=== PATIENT | male | born 1945 | race Caucasian/White ===

== ENCOUNTER 2016-12-29 13:50 | Emergency (ER) | payer MEDICARE, BC ==
--- OUTSIDE RECORDS SUMMARY | 2016-12-29 14:19 | XMS REPORT | Continuity of Care Document ---
:1945 Author Organization [facility] ([facility]) [place] [address] Phone [phone] Care Team Providers Name Role Phone Sharad Coello Primary Care Provider [phone] Source Comments This disclosure is being made pursuant to the Care Everywhere program, applicable federal and state laws, and may not contain all informaitonavailable regarding this patient.[facility] ([facility]) Active Allergies and Adverse Reactions Allergen Noted Date Severity Reactions Comments Cyclobenzaprine 11/22/2015 Unknown Tetracycline 10/30/2015 Unknown Current Medications Prescription Sig. Disp. Refills Start Date End Date Status albuterol 2.5 mg/3 mL 08/30/2015 Active inhalation solution ALPRAZolam 0.5 mg 10/08/2015 Active tablet amLODIPine 5 mg Take 5 mg by mouth 08/06/2015 Active tablet daily. furosemide 40 mg Take 40 mg by mouth 2 09/17/2015 Active tablet times daily. LANTUS 100 unit/mL 65 Units 2 times daily. 09/08/2015 Active injection vial TOPROL XL succinate 100 mg daily Take one 10/16/2015 Active 100 mg XL tablet and a half tablets. KLOR-CON 10 mEq XR Take 10 mEq by mouth 2 08/26/2015 Active tablet times daily. insulin lispro Inject 10 Units Active (HumaLOG) 100 unit/mL subcutaneously 3 times injection vial daily before meals. acarbose 25 mg tablet Take 25 mg by mouth 2 Active times daily. tamsulosin 0.4 mg Take 0.4 mg by mouth Active capsule daily. glimepiride 4 mg Take 4 mg by mouth 2 Active tablet times daily with meals. metFORMIN 500 mg Take 500 mg by mouth 2 Active tablet times daily with meals. JANTOVEN 5 mg tablet Take 5 mg by mouth 11/14/2015 Active daily. budesonide-formoterol Use 2 Puffs by Active (SYMBICORT) 160-4.5 inhalation 2 times mcg/Actuation inhaler daily. lovaSTATIN 20 mg Take 20 mg by mouth Active tablet every evening. melatonin 5 mg tablet Take 5 mg by mouth at Active bedtime. ferrous sulfate 325 Take 325 mg by mouth Active mg (65 mg iron) EC daily. tablet fluticasone 50 Use 2 Sprays into both Active mcg/Actuation nasal nostrils daily. spray Active Problems Problem Noted Date Morbid obesity with BMI of 50.0-59.9, adult Atrial fibrillation Overview: CARDIOVASCULAR PROCEDURES STRESS MPI: Normal perfusion. LVEF 68% 11/2010 CARDIOVASCULAR PROCEDURES STRESS MPI: Normal perfusion. LVEF 68% 11/2010 ECHO Echo: Normal study. EF 65%. No significant valve disease 11/01/2015 Diabetes mellitus Hyperlipidemia Hypertension Social History Tobacco Use Types Packs/Day Years Used Date Never Smoker Alcohol Use Drinks/Week oz/Week Comments No Last Filed Vital Signs Vital Sign Reading Time Taken Blood Pressure 136/80 05/27/2016 12:22 PM CDT Pulse 72 05/27/2016 12:22 PM CDT Temperature - - Respiratory Rate - - Height 1.676 m (5' 6") 05/27/2016 12:22 PM CDT Weight 143.79 kg (317 lb) 05/27/2016 12:22 PM CDT Body Mass Index 51.19 05/27/2016 12:22 PM CDT Oxygen Saturation - - Plan of Care Health Maintenance Due Date Last Done Comments HCV Screening 1945 Hepatitis B Vaccine (1 of 3 - Primary Series) 1945 Tdap Vaccine 1956 DIABETIC: Cholesterol 1963 Diabetic: Hdl 1963 DIABETIC: Hemoglobin A1C 1964 Diabetic: Ldl 1964 DIABETIC: Microalbumin 1964 DIABETIC: Triglycerides 1963 Td Vaccine 1963 Colonoscopy 05/16/1996 Prostate Cancer Screening 1996 Zoster Vaccine 2006 Pneumococcal Vaccine (1 of 2 - PCV13) 2011 DIABETIC: Foot Exam 10/30/2015 DIABETIC: Retinal Eye Exam 10/30/2015 Influenza Vaccine: Seasonal Completed Results from Last 3 Months Not on file
--- OUTSIDE RECORDS SUMMARY | 2016-12-29 14:19 | XMS REPORT | Summary of Care ---
:1945 Author Organization [facility] Address [address] [place] [address] Care Team Providers Name Role Phone Sharad Coello Primary Care Physician Encounter Date(s): 09/26/16 - 09/26/16 [facility], [address] [place], [place] [address] Discharge Diagnosis: BPH with obstruction/lower urinary tract symptoms Discharge Diagnosis: History of kidney stones Discharge Disposition: 01 Discharged to Home or Self Care Attending Physician: Justni Prescott MD Referring Physician: Justin Prescott MD Vital Signs Most recent to oldest [Reference Range]: 1 Temperature Temporal Artery [36.0-38.0 DegC] 36.0 DegC (09/26/16 11:08 AM) Blood Pressure [90-130/60-90 mmHg] 158/82mmHg *HI* (09/26/16 11:08 AM) Mean Arterial Pressure, Cuff 107 mmHg (09/26/16 11:08 AM) Most recent to oldest [Reference Range]: 1 Weight Dosing 141.6 kg (09/26/16 11:08 AM) Weight Measured 141.6 kg (09/26/16 11:08 AM) Problem List Condition Effective Dates Status Health Status Informant Allergic rhinitis(Confirmed) Active Anxiety(Confirmed) Active BPH(Confirmed) Active Diabetes mellitus(Confirmed) Active Edema(Confirmed) Active GERD - Gastro-esophageal reflux Active disease(Confirmed) Gout(Confirmed) Active Hyperlipidemia(Confirmed) Active Hypertension(Confirmed) Active Iron deficiency anemia NOS(Confirmed) Active Kidney stone(Confirmed) Active Obesity(Confirmed) Active Osteoarthritis(Confirmed) Active Sleep apnea(Confirmed) Active Thrombocytopenia(Confirmed) Active Allergies, Adverse Reactions, Alerts Substance Reaction Severity Status cyclobenzaprine Unknown Severe Active Indocin Acute mental status changes Severe Active tetracyclines Swelling Severe Active Medications acarbose 25 mg oral tablet 1 tab(s), Oral, TID, 0 Refill(s) Start Date: 01/13/14 Status: Orderedalbuterol 2.5 mg/3 mL (0.083%) inhalation solution mL, Inhale, q6hr interval, PRN shortness of breath or wheezing, 0 Refill(s) Start Date: 01/13/14 Status: Orderedalbuterol HFA 1-2 puff, Inhale, PRN shortness of breath or wheezing, 0 Refill(s) Start Date: 01/13/14 Status: OrderedALPRAZolam 0.5 mg oral tablet 1 tab(s), Oral, HS, PRN for anxiety, takes as sleep aid, 0 Refill(s) Special Instructions: takes as sleep aid Start Date: 01/13/14 Status: OrderedamLODIPine 5 mg oral tablet 1 tab(s), Oral, Daily, # 30 tab(s), 0 Refill(s), Start Date: 01/10/16 11:50:00 CDT Start Date: 01/10/16 Status: OrderedamLODIPine-atorvastatin 5 mg-20 mg oral tablet tab(s), Oral, Daily, 0 Refill(s) Start Date: 01/13/14 Stop Date: 01/17/14 Status: Discontinuedaspirin 81 mg oral tablet tab(s), Oral, Daily, 0 Refill(s) Start Date: 01/13/14 Status: OrderedBactrim tab(s), Oral, BID, 0 Refill(s) Start Date: 01/17/14 Stop Date: 04/27/14 Status: Completedcephalexin 500 mg oral tablet tab(s), Oral, BID, 0 Refill(s), Start Date: 07/13/15 11:31:00 ELEMENTARY READING [employer]OR Start Date: 07/13/15 Stop Date: 01/10/16 Status: CompletedCipro 500 mg oral tablet 1 tab(s), Oral, q12hr, # 6 tab(s), 0 Refill(s) Start Date: 01/18/14 Stop Date: 04/27/14 Status: CompletedDilaudid 2 mg oral tablet 2 tab(s), Oral, q4hr, PRN for pain, # 24 tab(s), 0 Refill(s) Start Date: 01/18/14 Stop Date: 01/10/16 Status: CompletedDULoxetine 30 mg oral delayed release capsule 1 cap(s), Oral, Daily, do not crush or chew, # 30 cap(s), 0 Refill(s), Start Date: 09/26/16 11:10:00 ELEMENTARY READING TUTOR Special Instructions: do not crush or chew Start Date: 09/26/16 Status: Orderedferrous sulfate 325 mg (65 mg elemental iron) oral tablet 1 tab(s), Oral, Daily, 0 Refill(s), Start Date: 01/10/16 11:48:00 CDT Start Date: 01/10/16 Status: OrderedFlonase 50 mcg/inh nasal spray spray(s), Nasal, Daily, 0 Refill(s) Start Date: 01/13/14 Status: Orderedfurosemide 40 mg oral tablet 1 tab(s), Oral, BID, 0 Refill(s) Start Date: 01/13/14 Status: Orderedglimepiride 4 mg oral tablet 1 tab(s), Oral, BID, 0 Refill(s) Start Date: 01/13/14 Status: OrderedHumuLIN N Subcutaneous, BID, 0 Refill(s), Start Date: 01/10/16 11:49:00 CDT Start Date: 01/10/16 Status: OrderedHYDROcodone-acetaminophen 5 mg-325 mg oral tablet tab(s), Oral, q6hr interval, 0 Refill(s) Start Date: 01/13/14 Stop Date: 01/18/14 Status: Discontinuedibuprofen 800 mg oral tablet tab(s), Oral, TID, PRN for pain, 0 Refill(s) Start Date: 01/13/14 Stop Date: 01/10/16 Status: CompletedInsulin Syringes 1/4" 31G 0 Refill(s), Supply Start Date: 01/13/14 Status: OrderedKlor-Con 10 mEq, Oral, BID, 0 Refill(s) Start Date: 01/13/14 Status: OrderedLantus 60 units, Subcutaneous, BIDAC, 0 Refill(s) Start Date: 01/17/14 Status: OrderedLotrisone 1%-0.05% topical cream rob, Topical, BID, 0 Refill(s) Start Date: 01/13/14 Status: Orderedlovastatin 20 mg oral tablet 1 tab(s), Oral, HS, 0 Refill(s) Start Date: 01/13/14 Status: OrderedmetFORMIN 500 mg oral tablet, extended release 2 tab(s), Oral, BID, 0 Refill(s) Start Date: 01/13/14 Status: Orderedmultivitamin Daily, 0 Refill(s) Start Date: 01/13/14 Status: OrderedNexIUM 40 mg oral delayed release capsule cap(s), Oral, Daily, 0 Refill(s) Start Date: 01/13/14 Stop Date: 01/10/16 Status: CompletedOne Touch Ultra 2 Test Strips 0 Refill(s), Supply Start Date: 01/13/14 Status: Orderedoxybutynin 5 mg oral tablet 1 tab(s), Oral, TID, May cause urinary retention so be careful taking. May also need laxative for constipation., # 10 tab(s), 0 Refill(s) Special Instructions: May cause urinary retention so be careful taking. May also need laxative for constipation. Start Date: 01/18/14 Stop Date: 11/10/14 Status: CompletedSymbicort 160 mcg-4.5 mcg/inh inhalation aerosol puff(s), Inhale, BID, 0 Refill(s) Start Date: 01/13/14 Status: Orderedtamsulosin 0.4 mg oral capsule cap(s), Oral, Daily, 0 Refill(s) Start Date: 01/13/14 Status: OrderedToprol-XL 100 mg oral tablet, extended release 1 tab(s), Oral, Daily, # 30 tab(s), 0 Refill(s), Start Date: 01/10/16 11:51:00 CDT Start Date: 01/10/16 Status: OrderedVoltaren Topical 1% topical gel gm=, Topical, QID, 0 Refill(s) Start Date: 01/13/14 Status: Orderedwarfarin 5 mg oral tablet 1 tab(s), Oral, Daily, 0 Refill(s), Start Date: 01/10/16 11:50:00 CDT Start Date: 01/10/16 Status: OrderedZofran ODT 1 tab, Oral, PRN nausea, unsure of dose, 0 Refill(s) Special Instructions: unsure of dose Start Date: 01/13/14 Status: OrderedZyrTEC 10 mg oral tablet tab(s), Oral, Daily, 0 Refill(s) Start Date: 01/13/14 Stop Date: 01/10/16 Status: Completed Results No data available for this section Immunizations No data available for this section Procedures Procedure Date Related Diagnosis Body Site Cystoureteroscopy With Lithotripsy (Right)1 01/18/14 Knee replacement right 2009 History of hip surgery 1992 Surgical procedure2 1976 Cubital tunnel release3 Nasal polypectomy Surgery4 Surgical procedure5 1auto-populated from documented surgical [id number] tirgger finger [id number] Social History No data available for this section Assessment and Plan No data available for this section
[2016-12-29 14:47] LABS: Hematocrit 37.7 % (42.0-52.0); Hemoglobin 12.2 gm/dL (13.5-18.0); Mean Corpuscular Hemoglobin 24.3 pg (27-31); Mean Corpuscular Hgb Conc 32.4 g/dl (32-36); Mean Platelet Volume 9.6 fl (6.0-9.5); Neutrophil # 6.6 K/mm3 (1.3-6.0); Neutrophil % 67.1 % (42-75.0); Platelet Count 204 K/mm3 (150-450); Red Blood Count 5.03 M/mm3 (4.7-6.0); Red Cell Distribution Width 14.9 % (11.5-14.0); White Blood Count 9.8 K/mm3 (4.0-10.5)
[2016-12-29 15:00] LABS: Albumin * 3.4 gm/dl (3.4-5.0); Anion Gap 13.2 mmol/L (6.8-13.8); BUN/Creatinine Ratio 9.3 (9.0-21.6); Bilirubin, Total 0.5 mg/dL (0.0-1.1); Ca. Corrected For Albumin 9.3 mg/dL (8.4-10.2); Calcium * 9.1 mg/dL (7.9-10.9); Carbon Dioxide 28.7 mmol/L (24-32.6); Potassium 3.9 mmol/L (3.4-4.6); Total Protein 7.3 gm/dL (6.2-8.2)
[2016-12-29 15:13] LABS: Prothrombin Time (Patient) 77.6 Seconds (9.4-11.4)
[2016-12-29 15:18] LABS: INR 7.46 INR (0.90-1.10)
--- NOTE | 2016-12-29 15:48 | ERNOTE ---
Medical Problem HPI - Narrative Date of Service: 12/29/16 - General Chief Complaint: General Assessment Time Seen by Provider: 12/29/16 14:05 Source: patient Exam Limitations: no limitations - Immun/Allergies/Home Medications Immunizations: IMMUNIZATION HX Immunizations Up to Date No History of Influenza Vaccine No Hx Pneumococcal Vaccination No Allergies/Adverse Reactions: Allergies cyclobenzaprine Allergy (Verified 12/29/16 13:57) indomethacin [From Indocin] Allergy (Verified 12/29/16 13:57) indomethacin sodium [From Indocin] Allergy (Verified 12/29/16 13:57) tetracycline [Tetracycline] Allergy (Verified 12/29/16 13:57) Home Medications: HOME MEDICATIONS Lovastatin [Mevacor] 20 mg PO DAILY 02/25/13 [Last Taken Unknown] Potassium Chloride [Klor-Con 10] 20 meq PO DAILY 02/25/13 [Last Taken Unknown] Acarbose [Precose] 25 mg PO BID 01/01/16 [Last Taken Unknown] Albuterol Sulfate 2.5 mg IH PRN PRN 01/01/16 [Last Taken Unknown] Budesonide/Formoterol Fumarate [Symbicort 160-4.5 Mcg Inhaler] 2 puff IH BID 06/08 [Last Taken Unknown] Fluticasone Propionate [Flovent Diskus] 50 mcg IH TID 01/01/16 [Last Taken Unknown] Furosemide [Lasix] 40 mg PO BID 01/01/16 [Last Taken Unknown] Glimepiride 4 mg PO BID 01/01/16 [Last Taken Unknown] Insulin Glargine,Hum.rec.anlog [Lantus] 65 units SC BID 01/01/16 [Last Taken Unknown] Insulin Regular, Human [Humulin R] 10 unit SC DAILY@1200 01/01/16 [Last Taken Unknown] Loratadine [Claritin] 10 mg PO DAILY 01/01/16 [Last Taken Unknown] Tamsulosin HCl [Flomax] 0.4 mg PO DAILY 01/01/16 [Last Taken Unknown] Warfarin Sodium [Coumadin] 5 mg PO DAILY 01/01/16 [Last Taken Unknown] ALPRAZolam [Xanax] 0.5 mg PO HS PRN 03/26/16 [Last Taken Unknown] Diclofenac Sodium [Voltaren] 1 appl TP QID 03/26/16 [Last Taken Unknown] Metoprolol Succinate [Toprol Xl] 100 mg PO DAILY 03/26/16 [Last Taken Unknown] metFORMIN HCL [Metformin HCl ER] 500 mg PO DAILY 03/26/16 [Last Taken Unknown] Amlodipine Besylate 5 mg PO DAILY 12/29/16 [Last Taken Unknown] - History of Present History Narrative: 71-year-old male presents to the emergency room after he rolled over his lawnmower at home. Patient states steroid melted his chest and has right ankle is sore lawnmower clotted at some point. Patient denies any hitting his head he has no other symptoms at this time.Patient is on Coumadin. Date (Duration): 12/29/16 Timing: constant Severity: mild Modifying Factors - (Improves): Present: immobilization Modifying Factors - (Worsens): Present: movement Review of Systems - Review of Systems Constitutional: Present: no symptoms reported EYE: Present: no symptoms reported ENT: Present: no symptoms reported Respiratory: Present: no symptoms reported Cardiology: Present: no symptoms reported Gastrointestinal/Abdominal: Present: no symptoms reported Genitourinary: Present: no symptoms reported Musculoskeletal: Present: See HPI, joint pain Skin: Present: See HPI Neurological: Present: no symptoms reported Endocrine: Present: no symptoms reported Hematologic/Lymphatic: Present: See HPI Psych: Present: no symptoms reported - Patient's Past Medical History Patient History - Medical: Anxiety, Arthritis, Diabetes Type 2 Insulin Dependent , GERD, Obesity, Other Patient History - Cardiac/Respiratory: Bronchitis, Hypertension, Hyperlipidemia , Sleep Apnea Patient History - Cancer: No Hx of Cancer Patient History - Surgical Procedures: Back Surgery, Total Knee Replacement, Other Patient History - Other: None - Social History Living Situations: home Abuse History: No History of abuse Psych History: Hx of Anxiety Alcohol Use: none Drug Use: none - Immunizations Immunizations Up to Date: No Hx Pneumococcal Vaccination: No History of Influenza Vaccine: No Physical Exam - Physical Exam Narrative: sternum is rounding machine tender to touch, no bruising or deformity seen. Several small skin teard to right elbow and a few scatters to left and right legs. Right ankle is tender to touch and swollen. Patient has +1-2 edema to BLE which is normal for him. General Appearance: Present: wd/wn, alert, no apparent distress Eye Exam: Normal inspection: bilateral Ears, Nose, Throat: Present: normal ENT inspection Neck: Present: normal inspection, nontender, full range of motion Respiratory: Present: no respiratory distress, normal breath sounds, no accessory muscle use, lungs clear Cardiovascular/Chest: Present: regular rate, rhythm, no murmur, normal peripheral pulses Peripheral Pulses: N=norm/S=strong/W=weak/B=bound/A=absent: Radial (R): Normal, Radial (L): Normal, Dorsalis-pedis (R): Normal, Dorsalis-pedis (L): Normal Gastrointestinal/Abdominal: Present: normal bowel sounds, nondistended, soft. Absent: tenderness, distended Back Exam: Present: normal inspection, normal range of motion, no CVA tenderness Extremity Exam: Present: normal except - Neurological Exam: Present: alert, oriented, normal mood/affect, no motor/ sensory deficits, quality assurance/r&d lab technician II-XII nml as tested, normal cerebellar test. Absent: facial droop Skin Exam: Present: normal color, warm/dry Lymphatic Exam: Present: no adenopathy ED Progress - Results and Orders Patient's Lab Results:: I have reviewed the patient's lab results. Results and Orders: elevated inr, Patient is to hold INR, recheck on Thursday at Coumadin clinic. - Vital Signs Patient's Vital Signs:: I have reviewed the patient's vital signs. Vital Signs: Vital Signs 12/29/16 12/29/16 12/29/16 13:52 14:14 15:04 Temperature 36.8 C 36.6 C Pulse Rate 77 78 72 Respiratory 14 14 14 Rate Blood Pressure 164/95 153/78 163/70 O2 Sat by Pulse 98 96 96 Oximetry - X-Ray X-Ray #1 X-Ray: ankle Interpretation: Reviewed by me X-ray Comments: Ankle Minimum 3 Views RT * No definable fracture lucency or cortical discontinuity. Patient has small well-corticated ossific fragments distal to both the medial and lateral malleoli. Joint spaces are in gross normal alignment without subluxation or dislocation. Diffuse soft tissue swelling noted. Soft tissue calcifications noted along the medial aspect of the right lower leg/ankle. IMPRESSION: 1. No definite signs of acute fracture. Probable old avulsion injuries of the medial and lateral malleoli, but clinical correlation is advised. 2. Diffuse soft tissue swelling. 3. Nonspecific soft tissue calcifications of the right lower extremity. Correlate clinically for any road debris/laceration. Electronically signed by Pat Rowan M.D.. - CT/Ultrasound CT/Ultrasound Narrative: Technique: Multiple axial images of the head obtained without contrast enhancement. Comparison: None. Findings: Exam shows symmetric appearing ventricular system and cortical sulci. There is no positive mass effect or midline shift. There is no evidence for intracranial hemorrhage. Visualized paranasal sinuses and mastoid air cells appear adequately aerated. There are no skull fractures. IMPRESSION: NO ACUTE INTRACRANIAL PATHOLOGY IDENTIFIED. Electronically signed by Markos Girard M.D.. History: Trauma. Pain post injury. Rolled lawnmower today. Chest pain. Headache. Technique: Multislice helical acquisition of the cervical spine performed without contrast enhancement. Axial, coronal, and parasagittal reconstruction images performed and reviewed. Comparison: 10/08/2015 Findings: There is soft tissue attenuation secondary to patient body habitus. Alignment appears within normal limits. There is osteophyte formation at all levels. No fractures identified. No prevertebral soft tissue swelling identified. IMPRESSION: MILD TO MODERATE MULTILEVEL CERVICAL SPONDYLOSIS. NO ACUTE FRACTURE OR DISLOCATION IDENTIFIED. Electronically signed by Markos Girard M.D.. History: Trauma. Pain post injury. Rolled lawnmower today. Chest pain. Headache. Technique: 1.5 mm and 3 mm axial imaging from the level above the thoracic inlet through the lung bases to the adrenal glands performed with IV contrast enhancement. Comparison: 09/15/2011 Findings: There are atherosclerotic calcifications including coronary artery calcifications. There is no mediastinal or hilar traumatic injuries. There is no pericardial effusion. There is no significant pleural effusions. There is no pneumothorax. There is no pulmonary contusion. There is some dependent atelectasis. There are degenerative changes and a scoliotic thoracic spine. IMPRESSION: NO ACUTE CARDIOPULMONARY DISEASE IDENTIFIED. ATHEROSCLEROTIC DISEASE INCLUDING CORONARY ARTERY CALCIFICATIONS. Electronically signed by Markos Girard M.D.. Findings: There are atherosclerotic calcifications. There is mild diffuse fatty infiltration of the liver. Liver is enlarged measuring 20 cm. Spleen appears within normal limits. Adrenal glands are within normal limits. There is some fatty infiltration and atrophy of the pancreas. Kidneys appear within normal limits. There are degenerative changes of the lumbar spine. There is no significant free fluid or ascites. There is no hemoperitoneum. Urinary bladder is unremarkable. There are mild degenerative changes to both sacroiliac joints. There is diverticulosis of the left hemicolon. Appendix is unremarkable. IMPRESSION: NO ACUTE POSTTRAUMATIC INTRA-ABDOMINAL OR PELVIC ORGAN INJURY IDENTIFIED. NONSPECIFIC HEPATOMEGALY WITH FATTY INFILTRATION OF THE LIVER. OTHER INCIDENTAL FINDINGS SUCH ATHEROSCLEROTIC DISEASE AND DEGENERATIVE CHANGES. Electronically signed by Markos Girard M.D.. - Progress/Reassessment Chief Complaint: General Assessment Progress:: Improved Plan - Plan Plan: He was given discharge instructions by Ann who was running the Coumadin clinic. She instructed him to not take his medication for Coumadin for 2 days and return to the hospital on Thursday for a follow-up INR and kidney function tests related to CT scan contrast in him being on metformin. Patient agrees to this ER attending agrees to this and this provider agrees to this plan of action. Departure - Departure Clinical Impression: Contusion of right ankle, initial encounter Qualifiers: Encounter type: initial encounter Qualified Code(s): S90.01XA - Contusion of right ankle, initial encounter Disposition: Home Follow Up Needed Condition: Stable Instructions: RICE for Routine Care of Injuries, [id number], Ankle Pain Additional Instructions: Continue previous home medications as directed. Follow-up with family clinic on Thursday for a recheck of her INR and Kidney function check r/t your metformin. He may follow up with her primary care provider to regular related to ankle pain if needed. Return to the emergency room if any new symptoms develop or he becomes short of breath or have chest pain. Referrals: Sharad Coello MD [Primary Care Provider] -
[2016-12-29 16:10] VITALS: BP 129/53
[2016-12-29 16:49] LABS: Urine Appearance Clear; Urine Bacteria 1+; Urine Bilirubin Negative (NEGATIVE); Urine Blood Negative /ul (NEGATIVE); Urine Color Yellow; Urine Ketone Negative (NEGATIVE); Urine Nitrite Negative (NEGATIVE); Urine Protein Negative (NEGATIVE); Urine RBC None Seen /hpf (0-5); Urine Urobilinogen Normal (NORMAL); Urine WBC None Seen /hpf (0-5); Urine pH 7.5 pH (5.0-7.0)
== END 2016-12-29 16:19 | disposition home or self-care (01) ==
LOC: ER 13:50
DX: S90.01XA Contusion of right ankle, initial encounter (principal); X58.XXXA Exposure to other specified factors, initial encounter; Y93.H9 Activity, other involving exterior property and land maintenance, building and construction; Y92.007 Garden or yard of unspecified non-institutional (private) residence as the place of occurrence of the external cause; F41.9 Anxiety disorder, unspecified; M19.90 Unspecified osteoarthritis, unspecified site; E11.9 Type 2 diabetes mellitus without complications; Z79.4 Long term (current) use of insulin; K21.9 Gastro-esophageal reflux disease without esophagitis; I10 Essential (primary) hypertension; E78.5 Hyperlipidemia, unspecified

== ENCOUNTER 2017-04-17 07:01 | Day surgery (SDC) | payer MEDICARE, BC ==
[~2017-04-17 07:01] MED LIST: CIPROFLOXACIN HCL 500 MG TABLET PO PRN
[2017-04-17] MEDS ORDERED: LIDOCAINE HCL 10 APPL CARTRIDGE TP ONE (08:00)
[2017-04-17 08:49] VITALS: BP 136/81
== END 2017-04-17 07:02 | disposition home or self-care (01) ==
LOC: AMB 07:01
PROVIDERS: ATTEND Urology
PROC: 0TJB8ZZ Inspection of Bladder, Via Natural or Artificial Opening Endoscopic (ICD-10-PCS; principal; 2017-04-17 08:00)
DX: N40.1 Benign prostatic hyperplasia with lower urinary tract symptoms (principal); N13.8 Other obstructive and reflux uropathy; R31.0 Gross hematuria; I10 Essential (primary) hypertension; E11.9 Type 2 diabetes mellitus without complications; E78.5 Hyperlipidemia, unspecified; K21.9 Gastro-esophageal reflux disease without esophagitis; M10.9 Gout, unspecified; E66.9 Obesity, unspecified; Z68.43 Body mass index [BMI] 50.0-59.9, adult

== ENCOUNTER 2018-10-18 09:33 | Observation (INO) ==
[2018-10-18] MEDS ORDERED: FUROSEMIDE 10 MG/ML VIAL IV ONE ×3 (09:56→18:00)
[2018-10-18 10:11] LABS: Hematocrit 36.5 % (42.0-52.0); Hemoglobin 10.4 gm/dL (13.5-18.0); Mean Cell Volume 71.4 fl (78-100); Mean Corpuscular Hemoglobin 20.4 pg (27-31); Mean Corpuscular Hgb Conc 28.5 g/dl (32-36); Neutrophil # 6.8 K/mm3 (1.3-6.0); Neutrophil % 71.8 % (42-75.0); Platelet Count 212 K/mm3 (150-450); Red Blood Count 5.11 M/mm3 (4.7-6.0); Red Cell Distribution Width 17.8 % (11.5-14.0); White Blood Count 9.5 K/mm3 (4.0-10.5)
--- NOTE | 2018-10-18 10:19 | ERNOTE ---
Chest Pain/Cardiac HPI Chief Complaint: Chest Pain Time Seen by Provider: 10/18/18 09:49 Source: patient, family Exam Limitations: no limitations Immunizations: IMMUNIZATION HX Immunizations Up to Date Yes History of Influenza Vaccine No Hx Pneumococcal Vaccination No Allergies/Adverse Reactions: Allergies cyclobenzaprine Allergy (Severe, Verified 10/18/18 09:48) rash, vomit, sores in mouth tetracycline [Tetracycline] Allergy (Mild, Verified 10/18/18 09:48) SWELLING indomethacin [From Indocin] Adverse Reaction (Mild, Verified 10/18/18 09:48) MENTAL STATUS CHANGES indomethacin sodium [From Indocin] Adverse Reaction (Verified 10/18/18 09:48) MENTAL STATUS CHANGES Home Medications: HOME MEDICATIONS epinephrine 0.3 mg/0.3 mL injection, auto-injector 0.3 mg IM Q10-15M PRN 02/24/18 [Last Taken Unknown] oxygen-air delivery systems device See Dose Instructions .ROUTE .MEDSUPPLY #1 02/24/18 [Last Taken Unknown] pen needle, diabetic 31 gauge x 5/16" See Dose Instructions .ROUTE .MEDSUPPLY #30 ea 02/24/18 [Last Taken Unknown] acarbose 25 mg tablet 25 mg PO TID #90 tab 05/11/18 [Last Taken Unknown] albuterol sulfate 2.5 mg/3 mL (0.083 %) solution for nebulization 2.5 mg IH Q6H #360 ml 05/11/18 [Last Taken Unknown] albuterol sulfate HFA 90 mcg/actuation aerosol inhaler 1 - 2 puff IH Q4H #18 g 05/11/18 [Last Taken Unknown] blood sugar diagnostic strips See Dose Instructions .ROUTE .MEDSUPPLY #100 ea 05/11/18 [Last Taken Unknown] budesonide-formoterol HFA 160 mcg-4.5 mcg/actuation aerosol inhaler 2 puff IH BID #10.2 g 05/11/18 [Last Taken Unknown] cetirizine 10 mg tablet 10 mg PO HS PRN #90 tab 05/11/18 [Last Taken Unknown] clotrimazole-betamethasone 1 %-0.05 % topical cream 1 applic TP BID #45 g 05/11/18 [Last Taken Unknown] diclofenac 1 % topical gel 4 g TP QID #100 g 05/11/18 [Last Taken Unknown] diphenoxylate-atropine 2.5 mg-0.025 mg tablet 0.4 tab PO Q6H PRN #120 tab 05/11/18 [Last Taken Unknown] duloxetine 30 mg capsule,delayed release 30 mg PO DAILY #90 cap 05/11/18 [Last Taken Unknown] ferrous sulfate 325 mg (65 mg iron) tablet 325 mg PO DAILY #90 tab 05/11/18 [Last Taken Unknown] finasteride 5 mg tablet 5 mg PO DAILY #90 tab 05/11/18 [Last Taken Unknown] fluticasone 50 mcg/actuation nasal spray,suspension 1 spray FLOYD BID #16 g 05/11/18 [Last Taken Unknown] insulin aspart U- 100 100 unit/mL subcutaneous pen 15 unit SUB-Q TID #15 ml 05/11/18 [Last Taken Unknown] insulin detemir (U- 100) 100 unit/mL subcutaneous solution 65 unit SUB-Q BID #40 ml 05/11/18 [Last Taken Unknown] insulin syringe U-100 with needle 0.5 mL 31 gauge x 5/16" See Dose Instructions .ROUTE .MEDSUPPLY #100 ea 05/11/18 [Last Taken Unknown] lovastatin 20 mg tablet 20 mg PO HS #90 tab 05/11/18 [Last Taken Unknown] metoprolol succinate ER 100 mg tablet,extended release 24 hr 200 mg PO DAILY #180 tab 05/11/18 [Last Taken Unknown] multivitamin with folic acid 400 mcg tablet 1 tab PO DAILY #90 tab 05/11/18 [Last Taken Unknown] potassium chloride ER 10 mEq tablet,extended release(part/cryst) 20 meq PO DAILY #180 tab 05/11/18 [Last Taken Unknown] warfarin 5 mg tablet See Rx Instructions PO DAILY #60 tab 05/11/18 [Last Taken Unknown] amoxicillin 875 mg-potassium clavulanate 125 mg tablet 1 tab PO Q12H #20 tab 06/14/18 [Last Taken Unknown] azithromycin 250 mg tablet See Rx Instructions PO .COMPLEX #6 tab 06/21/18 [Last Taken Unknown] benzonatate 100 mg capsule 100 mg PO TID PRN #30 cap 06/21/18 [Last Taken Unknown] furosemide 40 mg tablet 40 mg PO BID #180 tab 06/30/18 [Last Taken Unknown] pioglitazone 30 mg tablet 30 mg PO DAILY #90 tab 06/30/18 [Last Taken Unknown] tamsulosin 0.4 mg capsule 0.4 mg PO DAILY #90 cap 07/16/18 [Last Taken Unknown] metformin ER 500 mg 24 hr tablet,extended release 1,000 mg PO BID #360 tab 08/31/18 [Last Taken Unknown] Narrative: Patient was seen here yesterday for shortness of breath that ended up being congestive heart failure. As his vital signs are stable he did not meet admission criteria at that time and Lasix was increased to 80 mg for him. He returns today because his shortness of breath is gotten somewhat worse and he is struggling at home and has failed outpatient treatment. Timing: getting worse Severity/Quality: moderate, severe Location: other - Overall chest tightness Chest Pain Radiation: no radiation Activities at Onset: none Modifying Factors - Improves: Present: nothing Modifying Factors - Worsens: Present: exercise Nitro Today/Relief: no nitro taken today Aspirin Treatment Today: no aspirin today Associated Symptoms: Present: cough, shortness of breath Prior Treatment: Reports: recently seen, treated by physician Review of Systems - Review of Systems Constitutional: Present: See HPI EYE: Present: no symptoms reported ENT: Present: no symptoms reported Respiratory: Present: See HPI Cardiology: Present: See HPI Gastrointestinal/Abdominal: Present: no symptoms reported Genitourinary: Present: no symptoms reported Musculoskeletal: Present: no symptoms reported Skin: Present: no symptoms reported Neurological: Present: no symptoms reported Endocrine: Present: no symptoms reported Hematologic/Lymphatic: Present: no symptoms reported Psych: Present: no symptoms reported Medical History (Last Reviewed 10/18/18 @ 09:48 by Moraima Graham RN) Thrombocytopenia (Chronic) Onset Date: ~2010 Prostatitis (Chronic) Onset Date: Unknown Osteoarthritis (Chronic) Onset Date: ~2006 Obesity (Chronic) Onset Date: Unknown Nephrolithiasis (Chronic) Onset Date: Unknown Essential hypertension (Chronic) Onset Date: ~2011 Hyperlipidemia (Chronic) Onset Date: ~2011 Gout (Chronic) Onset Date: Unknown Edema (Chronic) Onset Date: ~2011 Diabetes mellitus (Chronic) Onset Date: ~2011 BPH (benign prostatic hyperplasia) (Chronic) Onset Date: ~2011 Atrial fibrillation (Chronic) Onset Date: Unknown Anxiety (Chronic) Onset Date: Unknown fistulectomy Onset Date: Unknown Kidney calculus Onset Date: Unknown Shingles Onset Date: Unknown Trigger finger Onset Date: Unknown Surgical History: Surgical History (Last Reviewed 10/18/18 @ 09:48 by Moraima Graham RN) H/O cystoscopy Onset Date: ~2013 [place] H/O elbow surgery Onset Date: ~1981 H/O intravenous pyelogram Onset Date: Unknown H/O nasal polypectomy Onset Date: Unknown H/O prostatectomy Onset Date: Unknown History of colonoscopy Onset Date: ~2010 History of hip surgery Onset Date: ~1992 History of knee replacement Onset Date: ~2008 Previous back surgery Onset Date: ~1975 S/P cubital tunnel release Onset Date: Unknown Family History: Family History (Last Reviewed 10/17/18 @ 12:00 by Alayna Echavarria RN) Mother Diabetes Heart disease Hypertension CVA (cerebral vascular accident) Glaucoma Father Heart disease Hypertension Kidney stones Social History: Preferred Language Yoruba Smoking Status Never smoker Have you smoked in the past 12 No months Do you dip or chew tobacco No Abuse History No History of abuse Psych History Hx of Anxiety Alcohol Use none Drug Use none (Last Updated 06/29/18 @ 11:46 by Sharad Coello MD) No Social History Section defined Physical Exam - Physical Exam General Appearance: Present: wd/wn, alert, moderate distress Head Exam: Present: normal inspection, no evidence of injury Eye Exam: Normal inspection: bilateral, PERRL: bilateral Ears, Nose, Throat: Present: normal ENT inspection, H, normal pharynx Neck: Present: normal inspection, nontender Respiratory: Present: chest nontender, respiratory distress, crackles - In the bases Cardiovascular/Chest: Present: no murmur, normal peripheral pulses, irregularly irregular Gastrointestinal/Abdominal: Present: normal bowel sounds, nontender, nondistended, soft, no organomegaly Rectal Exam: Present: deferred Back Exam: Present: normal inspection, normal range of motion Extremity Exam: Present: normal inspection, non-tender, no edema, normal range of motion Neurological Exam: Present: alert, oriented, normal mood/affect Skin Exam: Present: normal color, warm/dry Lymphatic Exam: Present: no adenopathy Progress - Results and Orders Patient's Lab Results:: I have reviewed the patient's lab results. - Vital Signs Patient's Vital Signs:: I have reviewed the patient's vital signs. Vital Signs: Vital Signs 10/18/18 09:39 10/18/18 09:46 Temperature 36.1 C Pulse Rate 77 77 Respiratory Rate 24 H Blood Pressure 144/88 172/74 H O2 Sat by Pulse Oximetry 94 93 - EKG EKG #1 EKG: atrial fibrillation EKG read: Reviewed by me - X-Ray X-Ray #1 X-Ray: chest Interpretation: Reviewed by me - Progress/Reassessment Chief Complaint: Chest Pain Plan - Plan Plan: Patient is failed outpatient therapy and I suspect, because of the CHF, that he gets up and tries to do anything with his atrial fibrillation kicks up and he becomes hypoxic which is also causing some confusion. Patient will be admitted to a telemetry bed for fairly aggressive diuretic therapy and likely echocardiogram. Departure Clinical Impression: Atrial fibrillation Qualifiers: Atrial fibrillation type: chronic Qualified Code(s): I48.2 - Chronic atrial fibrillation CHF (congestive heart failure) Qualifiers: Heart failure type: unspecified Heart failure chronicity: acute on chronic Qualified Code(s): I50.9 - Heart failure, unspecified - Departure Disposition: Still a patient Condition: Fair
[2018-10-18 10:23] LABS: Prothrombin Time (Patient) 21.4 Seconds (9.1-10.7)
[2018-10-18 10:24] LABS: INR 2.23 INR (0.92-1.08)
[2018-10-18 10:33] LABS: ALT 18 U/L (19-67); AST 23 U/L (0-48); Albumin * 3.4 gm/dl (3.4-5.0); Alkaline Phosphatase * 106 U/L (50-170); Anion Gap 12.6 mmol/L (6.8-13.8); BNP * 937 pg/mL (5-350); Bilirubin, Total 0.7 mg/dL (0.0-1.1); Blood Urea Nitrogen 14 mg/dL (6-23); Ca. Corrected For Albumin 9.7 mg/dL (8.4-10.2); Calcium * 9.5 mg/dL (7.9-10.9); Carbon Dioxide 31.1 mmol/L (24-32.6); Chloride 103 mmol/L (97-106); Glucose * 64 mg/dL (70-110); Potassium 3.7 mmol/L (3.4-4.6); Sodium 143 mmol/L (132-142); Total Protein 7.7 gm/dL (6.2-8.2)
[2018-10-18 10:34] LABS: Troponin I Less than 0.017 ng/mL (0.00-0.10)
[2018-10-18] MEDS ORDERED: NON-FORMULARY 1 DOSE DOSE (Albuterol Sulfate 2.5 MG) IH SCH (15:45)
[2018-10-18] MEDS ORDERED: DIPHENOXYLATE HCL/ATROP SULF 2.5 MG TABLET PO PRN (15:45)
[2018-10-18] MEDS ORDERED: LORATADINE 10 MG TABLET PO PRN (15:45)
[2018-10-18] MEDS ORDERED: EPINEPHrine 0.3 MG DISP.SYRIN IM PRN (15:45)
--- NOTE | 2018-10-18 16:45 | HP ---
Chief Complaint - Chief Complaint Date of Service: 10/18/18 Time of Service: 16:16 Chief Complaint: shortness of breath History of Present Illness: Neal Salas is a 73 year old white male with PMH of CHF and Atrial fibrillation presents from the ER 10/18/18 for worsening shortness of breath. He was seen in the ER on 10/17/18 for an acute CHF exacerbation and was instructed to take 80mg oral furosemide and oral potassium. He returned to the ER today for worsened symptoms. His weight has increased from 145kg on 10/17 to 158kg on 10/18. He complains of hand and leg swelling, chest heaviness, speech slurring, shortness of breath, orthopnea, nighttime cough, confusion. His says these symptoms have been progressing since 2 weeks ago. He claims to have been taking his prescribed medications regularly but denies following a low sodium diet. In the ER he was found to be hypertensive with a chest Xray demonstrating pulmonary edema. His EKG demonstrated Atrial Fibrillation with Right Bundle Branch Block. His troponin was normal. His BNP was elevated at 930. He claims to feel better since receiving IV furosemide in the ER today (10/18). His urine output is 2.5L since admission from the ER. Medical History (Last Reviewed 10/18/18 @ 12:00 by Ivis Braga RN) Thrombocytopenia (Chronic) Onset Date: ~2010 Prostatitis (Chronic) Onset Date: Unknown Osteoarthritis (Chronic) Onset Date: ~2006 Obesity (Chronic) Onset Date: Unknown Nephrolithiasis (Chronic) Onset Date: Unknown Essential hypertension (Chronic) Onset Date: ~2011 Hyperlipidemia (Chronic) Onset Date: ~2011 Gout (Chronic) Onset Date: Unknown Edema (Chronic) Onset Date: ~2011 Diabetes mellitus (Chronic) Onset Date: ~2011 BPH (benign prostatic hyperplasia) (Chronic) Onset Date: ~2011 Atrial fibrillation (Chronic) Onset Date: Unknown Anxiety (Chronic) Onset Date: Unknown fistulectomy Onset Date: Unknown Kidney calculus Onset Date: Unknown Shingles Onset Date: Unknown Trigger finger Onset Date: Unknown Surgical History: Surgical History (Last Reviewed 10/18/18 @ 12:00 by Ivis Braga RN) H/O cystoscopy Onset Date: ~2013 [place] H/O elbow surgery Onset Date: ~1981 H/O intravenous pyelogram Onset Date: Unknown H/O nasal polypectomy Onset Date: Unknown H/O prostatectomy Onset Date: Unknown History of colonoscopy Onset Date: ~2010 History of hip surgery Onset Date: ~1992 History of knee replacement Onset Date: ~2008 Previous back surgery Onset Date: ~1975 S/P cubital tunnel release Onset Date: Unknown Family History: Family History (Last Reviewed 10/18/18 @ 12:00 by Ivis Braga RN) Mother Diabetes Heart disease Hypertension CVA (cerebral vascular accident) Glaucoma Father Heart disease Hypertension Kidney stones Social History: Patient Lives/Resources With Spouse Utilized Occupation retired Preferred Language Nigerien Do you have any protestant or Yes cultural preference? Smoking Status Never smoker Have you smoked in the past 12 No months Do you dip or chew tobacco No Abuse History No History of abuse Psych History Hx of Anxiety Alcohol Use none Drug Use none (Last Updated 06/29/18 @ 11:46 by Sharad Coello MD) No Social History Section defined Review Of Systems (GEN) - Review of Systems Generalized/Overall Review: Present: Fatigue, Weight gain. Absent: Chills, Fever EENTM: Present: Blurred Vision - resolved Respiratory: Present: Cough, Shortness of Breath, Orthopnea, Wheezing Cardiac: Present: Chest Pain - Chest heaviness, Edema. Absent: Palpitations Abdominal: Absent: Nausea, Vomiting Genitourinary: Absent: Urgency, Frequency Musculoskeletal: Present: Joint Swelling Neurological: Present: Weakness. Absent: Headache Skin: Present: Rash - stasis dermatitis of legs Misc: All systems neg except as marked Immunizations: IMMUNIZATION HX Immunizations Up to Date Yes History of Influenza Vaccine No Hx Pneumococcal Vaccination No Allergies/Adverse Reactions: Allergies Allergy/AdvReac Type Severity Reaction Status Date / Time cyclobenzaprine Allergy Severe rash, Verified 10/18/18 12:01 vomit, sores in mouth tetracycline [Tetracycline] Allergy Mild SWELLING Verified 10/18/18 12:01 indomethacin [From Indocin] AdvReac Mild MENTAL Verified 10/18/18 12:01 STATUS CHANGES indomethacin sodium AdvReac MENTAL Verified 10/18/18 12:01 [From Indocin] STATUS CHANGES Home Medications: HOME MEDICATIONS epinephrine 0.3 mg/0.3 mL injection, auto-injector 0.3 mg IM Q10-15M PRN 02/24/18 [Last Taken Unknown] oxygen-air delivery systems device See Dose Instructions .ROUTE .MEDSUPPLY #1 02/24/18 [Last Taken Unknown] pen needle, diabetic 31 gauge x 01/06" See Dose Instructions .ROUTE .MEDSUPPLY #30 ea 02/24/18 [Last Taken Unknown] albuterol sulfate HFA 90 mcg/actuation aerosol inhaler 1 - 2 puff IH Q4H #18 g 05/11/18 [Last Taken Unknown] budesonide-formoterol HFA 160 mcg-4.5 mcg/actuation aerosol inhaler 2 puff IH BID #10.2 g 05/11/18 [Last Taken Unknown] cetirizine 10 mg tablet 10 mg PO HS PRN #90 tab 05/11/18 [Last Taken Unknown] clotrimazole-betamethasone 1 %-0.05 % topical cream 1 applic TP BID #45 g 05/11/18 [Last Taken Unknown] diclofenac 1 % topical gel 4 g TP QID #100 g 05/11/18 [Last Taken Unknown] fluticasone 50 mcg/actuation nasal spray,suspension 1 spray FLOYD BID #16 g 05/11/18 [Last Taken Unknown] warfarin 5 mg tablet See Rx Instructions PO DAILY #60 tab 05/11/18 [Last Taken Unknown] metformin ER 500 mg 24 hr tablet,extended release 1,000 mg PO BID #360 tab 08/31/18 [Last Taken Unknown] acarbose 25 mg tablet 25 mg PO TID #90 tab 10/18/18 [Last Taken Unknown] albuterol sulfate 2.5 mg/3 mL (0.083 %) solution for nebulization 2.5 mg IH Q6H #360 ml 10/18/18 [Last Taken Unknown] blood sugar diagnostic strips 0 strip .ROUTE .MEDSUPPLY 10/18/18 [Last Taken Un known] diphenoxylate-atropine 2.5 mg-0.025 mg tablet 0.4 tab PO Q6H PRN #120 tab 10/18/18 [Last Taken Unknown] duloxetine 30 mg capsule,delayed release 30 mg PO DAILY #90 cap 10/18/18 [Last Taken Unknown] ferrous sulfate 325 mg (65 mg iron) tablet 325 mg PO DAILY #90 tab 10/18/18 [Last Taken Unknown] finasteride 5 mg tablet 5 mg PO DAILY #90 tab 10/18/18 [Last Taken Unknown] furosemide 40 mg tablet 40 mg PO BID #180 tab 10/18/18 [Last Taken Unknown] insulin aspart U- 100 100 unit/mL subcutaneous pen 15 unit SUBCUT TID #15 ml 10/18/18 [Last Taken Unknown] insulin detemir (U- 100) 100 unit/mL subcutaneous solution 65 unit SUBCUT BID #40 ml 10/18/18 [Last Taken Unknown] insulin syringe U-100 with needle 0.5 mL 31 gauge x 5/16" 0 dis.syr .ROUTE .MEDSUPPLY 10/18/18 [Last Taken Unknown] lovastatin 20 mg tablet 20 mg PO HS #90 tab 10/18/18 [Last Taken Unknown] metoprolol succinate ER 100 mg tablet,extended release 24 hr 200 mg PO DAILY #180 tab 10/18/18 [Last Taken Unknown] multivitamin with folic acid 400 mcg tablet 1 tab PO DAILY #90 tab 10/18/18 [Last Taken Unknown] pioglitazone 30 mg tablet 30 mg PO DAILY #90 tab 10/18/18 [Last Taken Unknown] potassium chloride ER 10 mEq tablet,extended release(part/cryst) 20 meq PO DAILY #180 tab 10/18/18 [Last Taken Unknown] tamsulosin 0.4 mg capsule 0.4 mg PO DAILY #90 cap 10/18/18 [Last Taken Unknown] Exam - Exam Vital Signs: Vital Signs - Last Taken Temp 36.6 C 10/18/18 12:25 Pulse 85 10/18/18 15:05 Resp 28 H 10/18/18 12:25 BP 150/88 H 10/18/18 12:25 Pulse Ox 100 10/18/18 12:25 Constitutional: Present: Alert, Oriented x3, Cooperative, Morbidly obese ENT Exam: Present: normal ENT inspection, hearing grossly normal Eye Exam: bilateral eye: normal inspection, PERRL, EOMI Neck: Present: supple. Absent: lymphadenopathy (R), lymphadenopathy (L) Respiratory: Present: no accessory muscle use, decreased breath sounds, wheezing Cardiovascular/Chest: Present: normal peripheral pulses, no JVD - short neck, irregularly irregular, edema Abdomen: Present: Normal bowel sounds, obese, firm Extremity: Present: lower extremity edema, swelling Skin Exam: Present: normal color Lymphatic: Present: no adenopathy Neurologic: Present: human resources officer II-XII nml as tested, no motor/sensory deficits, oriented x 3 Diagnostic Studies: Abnormal Lab Results 10/18/18 10/18/18 10/18/18 Range/Units 10:08 10:08 10:08 Hgb 10.4 L (13.5-18.0) gm/dL Hct 36.5 L (42.0-52.0) % MCV 71.4 L (78-100) fl MCH 20.4 L (27-31) pg MCHC 28.5 L (32-36) g/dl RDW 17.8 H (11.5-14.0) % Lymphocytes % 16.1 L (20-51) % Neutrophils # 6.8 H (1.3-6.0) K/mm3 PT 21.4 H (9.1-10.7) Seconds INR (Anticoag Therapy) 2.23 H (0.92-1.08) INR Sodium 143 H (132-142) mmol/L Random Glucose 64 L (70-110) mg/dL ALT 18 L (19-67) U/L B-Natriuretic Peptide 937 H (5-350) pg/mL Laboratory Results WBC 9.5 K/mm3 (4.0-10.5) 10/18/18 10:08 RBC 5.11 M/mm3 (4.7-6.0) 10/18/18 10:08 Hgb 10.4 gm/dL (13.5-18.0) L 10/18/18 10:08 Hct 36.5 % (42.0-52.0) L 10/18/18 10:08 MCV 71.4 fl (78-100) L 10/18/18 10:08 MCH 20.4 pg (27-31) L 10/18/18 10:08 MCHC 28.5 g/dl (32-36) L 10/18/18 10:08 RDW 17.8 % (11.5-14.0) H 10/18/18 10:08 Plt Count 212 K/mm3 (150-450) 10/18/18 10:08 MPV 9.0 fl (8-11.3) 10/18/18 10:08 Immature Gran % (Auto) 0.30 % (0.001-0.429) 10/18/18 10:08 Immature Gran # (Auto) 0.03 K/mm3 (0.000-0.0310) 10/18/18 10:08 Neutrophils % 71.8 % (42-75.0) 10/18/18 10:08 Lymphocytes % 16.1 % (20-51) L 10/18/18 10:08 Monocytes % 9.0 % (0.0-9) 10/18/18 10:08 Eosinophils % 2.3 % (0.0-3.0) 10/18/18 10:08 Basophils % 0.5 % (0.0-1.0) 10/18/18 10:08 Nucleated RBC % 0.0 k/mm3 (0-1) 10/18/18 10:08 Neutrophils # 6.8 K/mm3 (1.3-6.0) H 10/18/18 10:08 Lymphocytes # 1.52 k/mm3 (1.5-3.5) 10/18/18 10:08 Monocytes # 0.9 k/mm3 (0.0-1.0) 10/18/18 10:08 Eosinophils # 0.2 k/mm3 (0.0-0.7) 10/18/18 10:08 Absolute Basophils 0.1 k/mm3 (0.0-0.1) 10/18/18 10:08 PT 21.4 Seconds (9.1-10.7) H 10/18/18 10:08 INR (Anticoag Therapy) 2.23 INR (0.92-1.08) H 10/18/18 10:08 Sodium 143 mmol/L (132-142) H 10/18/18 10:08 Plasma Sodium 142 mmol/L (130-142) 10/18/18 10:08 Potassium 3.7 mmol/L (3.4-4.6) 10/18/18 10:08 Chloride 103 mmol/L (97-106) 10/18/18 10:08 Carbon Dioxide 31.1 mmol/L (24-32.6) 10/18/18 10:08 Anion Gap 12.6 mmol/L (6.8-13.8) 10/18/18 10:08 BUN 14 mg/dL (6-23) 10/18/18 10:08 Creatinine 1.08 mg/dL (0.4-1.4) 10/18/18 10:08 Est GFR (Non-Af Amer) 71 mL/min (60-130) 10/18/18 10:08 BUN/Creatinine Ratio 13.0 (9.0-21.6) 10/18/18 10:08 Random Glucose 64 mg/dL (70-110) L 10/18/18 10:08 Calcium 9.5 mg/dL (7.9-10.9) 10/18/18 10:08 Calcium Adj for Albumin 9.7 mg/dL (8.4-10.2) 10/18/18 10:08 Magnesium 2.0 mg/dL (1.2-2.8) 10/18/18 10:08 Total Bilirubin 0.7 mg/dL (0.0-1.1) 10/18/18 10:08 AST 23 U/L (0-48) 10/18/18 10:08 ALT 18 U/L (19-67) L 10/18/18 10:08 Alkaline Phosphatase 106 U/L (50-170) 10/18/18 10:08 Troponin I Less than 0.017 ng/mL (0.00-0.10) 10/18/18 10:08 B-Natriuretic Peptide 937 pg/mL (5-350) H 10/18/18 10:08 Total Protein 7.7 gm/dL (6.2-8.2) 10/18/18 10:08 Albumin 3.4 gm/dl (3.4-5.0) 10/18/18 10:08 Mycoplasma pneumon IgM Non reactive (NonReactive) 10/18/18 10:08 Assessment/Plan - Assessment/Plan (1) Acute exacerbation of CHF (congestive heart failure) Assessment: Continue IV diuresis with 80mg Lasix at 6pm. Low salt diet. Start Lisinopril 20mg PO Daily, continue with metoprolol. Do Echocardiogram today. Order CBC, BNP, BMP 10/19. D/C Pioglitazone, Acarbose, Voltaren gel. Problem: Acute Qualifiers: Heart failure type: diastolic Qualified Code(s): I50.33 - Acute on chronic diastolic (congestive) heart failure (2) Essential hypertension Assessment: Continue metoprolol. Add lisinopril 20mg PO daily. Low salt diet. Problem: Chronic (3) Hyperlipidemia Assessment: Continue lovastatin. Problem: Chronic Qualifiers: (4) Diabetes mellitus Assessment: Continue with home insulin dose and metformin. Problem: Chronic Qualifiers: (5) Atrial fibrillation Assessment: Rate is controlled. Continue with anticoagulation and metoprolol. Follow up with echocardiogram. Problem: Chronic Qualifiers: Atrial fibrillation type: chronic Qualified Code(s): I48.2 - Chronic atrial fibrillation (6) Anemia Problem: Chronic Qualifiers: Anemia type: unspecified type Qualified Code(s): D64.9 - Anemia, unspecified
[2018-10-18] MEDS ORDERED: WARFARIN SODIUM 5 MG TABLET PO SCH (17:00)
[2018-10-18] MEDS: LISINOPRIL 20 MG TABLET PO SCH (17:09)
[2018-10-18] MEDS: INSULIN ASPART 100 UNITS/ML VIAL SC SCH (17:11)
[2018-10-18] MEDS ORDERED: ALBUTEROL SULFATE 2.5 MG/0.5 ML VIAL.NEB IH ONE (17:56)
[2018-10-18] MEDS: ALBUTEROL SULFATE 2.5 MG/0.5 ML VIAL.NEB IH SCH ×2 (18:00→22:05)
[2018-10-18] MEDS ORDERED: TAMSULOSIN HCL 0.4 MG CAP.SR.24H PO SCH (18:00)
[2018-10-18] MEDS: FLUTICASONE PROPION/SALMETEROL 14 PUFF DISK.W.DEV IH SCH (20:57)
[2018-10-18] MEDS ORDERED: SIMVASTATIN 10 MG TABLET PO SCH (21:00)
[2018-10-18] MEDS ORDERED: POTASSIUM CHLORIDE 20 MEQ TABLET.SA PO ONE (21:00)
[2018-10-18] MEDS: INSULIN DETEMIR 100 UNITS/ML VIAL SC SCH (21:30)
[2018-10-19] MEDS: ALBUTEROL SULFATE 2.5 MG/0.5 ML VIAL.NEB IH SCH ×4 (02:16→14:18)
[2018-10-19 06:01] LABS: Anion Gap 11.2 mmol/L (6.8-13.8); BUN/Creatinine Ratio 13.5 (9.0-21.6); Calcium * 9.3 mg/dL (7.9-10.9); Carbon Dioxide 32.4 mmol/L (24-32.6); Estimated Creat Clear 47.8; Potassium 3.6 mmol/L (3.4-4.6)
[2018-10-19] MEDS: INSULIN ASPART 100 UNITS/ML VIAL SC SCH ×2 (07:39→11:59)
--- NOTE | 2018-10-19 08:17 | DS ---
(1) Acute exacerbation of CHF (congestive heart failure) Problem: Resolved Qualifiers: Heart failure type: diastolic Qualified Code(s): I50.33 - Acute on chronic diastolic (congestive) heart failure (2) Essential hypertension Problem: Chronic (3) Hyperlipidemia Problem: Chronic Qualifiers: Hyperlipidemia type: pure hypercholesterolemia Qualified Code(s): E78.00 - Pure hypercholesterolemia, unspecified; E78.0 - Pure hypercholesterolemia (4) Diabetes mellitus Problem: Chronic Qualifiers: Diabetes mellitus type: type 2 Diabetes mellitus fpc insulin use: with physical security specialist use Diabetes mellitus complication status: without complication Qualified Code(s): E11.9 - Type 2 diabetes mellitus without complications; Z79.4 - halfway (current) use of insulin (5) Atrial fibrillation Problem: Chronic Qualifiers: Atrial fibrillation type: chronic Qualified Code(s): I48.2 - Chronic atrial fibrillation (6) Anemia Problem: Chronic Qualifiers: Anemia type: unspecified type Qualified Code(s): D64.9 - Anemia, unspecified Description of Stay: Neal Salas is a 73 year old white male with PMH of CHF and Atrial fibrillation who was admitted on 10/18/18 for worsening shortness of breath. He was seen in the ER on 10/17/18 for an acute CHF exacerbation and was instructed to take 80mg oral furosemide and oral potassium. He returned to the ER today for worsened symptoms. His weight has increased from 145kg on 10/17 to 158kg on 10/18. He complains of hand and leg swelling, chest heaviness, speech slurring, shortness of breath, orthopnea, nighttime cough, confusion. His said these symptoms have been progressing since 2 weeks ago. He claimed to have been taking his prescribed diuretic regularly ( but was not taking it correctly as found later) but denies following a low sodium diet. In the ER he was found to be hypertensive with a chest Xray demonstrating pulmonary edema. His EKG demonstrated Atrial Fibrillation with Right Bundle Branch Block. His troponin was normal. His BNP was elevated at 930. He claims to feel better since receiving IV furosemide in the ER today (10/18). His urine output is 2.5L since admission from the ER. Today, he has improved clinically. He denies shortness of breath and chest heaviness, and says he can speak in full sentences without difficulty. He says the swelling in his hands and legs has improved. His notes improvement in his breathing and speaking. His weight has decreased from 158kg on 10/18 to 150kg today (10/19). His blood pressure has decreased from 150/88 on 10/18 to 132/64. His total urine output is 2200mL as of 10/19. He has mild pretibial pitting edema which is normal for him. He has been encouraged to continue wearing compression stockings. He has been counseled to follow a low-sodium diet. His home Lasix dose will be changed from 40mg PO BID to 80mg PO daily to increase patient compliance. He will continue taking Lisinopril 20mg PO daily. He will follow-up in clinic in one week. Procedures Performed: none Results and Findings: Lab Pending Results 10/18/18 10:08: WBC 9.5, RBC 5.11, Hgb 10.4 L, Hct 36.5 L, MCV 71.4 L, MCH 20.4 L, MCHC 28.5 L, RDW 17.8 H, Plt Count 212, MPV 9.0, Immature Gran % (Auto) 0.30, Immature Gran # (Auto) 0.03, Neutrophils % 71.8, Lymphocytes % 16.1 L, Monocytes % 9.0, Eosinophils % 2.3, Basophils % 0.5, Nucleated RBC % 0.0, Neutrophils # 6.8 H, Lymphocytes # 1.52, Monocytes # 0.9, Eosinophils # 0.2, Absolute Basophils 0.1 10/18/18 10:08: Sodium 143 H, Plasma Sodium 142, Potassium 3.7, Chloride 103, Carbon Dioxide 31.1, Anion Gap 12.6, BUN 14, Creatinine 1.08, Est GFR (Non-Af Amer) 71, BUN/Creatinine Ratio 13.0, Random Glucose 64 L, Calcium 9.5, Calcium Adj for Albumin 9.7, Magnesium 2.0, Total Bilirubin 0.7, AST 23, ALT 18 L, Alkaline Phosphatase 106, Troponin I Less than 0.017, B-Natriuretic Peptide 937 H, Total Protein 7.7, Albumin 3.4 10/18/18 10:08: Mycoplasma pneumon IgM Non reactive 10/18/18 10:08: PT 21.4 H, INR (Anticoag Therapy) 2.23 H 10/18/18 19:32: pCO2 37.3, pO2 73.4 L, HCO3 26.4, Total CO2 27.6 H, Base Excess 2.7, ABG pH 7.47 H, ABG O2 Sat (Measured) 95.6 10/19/18 05:40: Sodium 140, Plasma Sodium 140, Potassium 3.6, Chloride 100, Carbon Dioxide 32.4, Anion Gap 11.2, BUN 17, Creatinine 1.26, Est GFR (Non-Af Amer) 60, BUN/Creatinine Ratio 13.5, Random Glucose 107 D, Calcium 9.3, B- Natriuretic Peptide 709 H Discharge Location: Home Disposition: Home self-care Condition: Stable Discharge Activity: Activity as tolerated Discharge Diet: Consistent carbs, Low salt, Low fat/chol Referrals: Sharad Coello MD [Primary Care Provider] - Problem Oriented Discharge Instructions to Patient/Family: Heart Failure, [id number], CHF Patient Instructions Additional Patient Instructions (free text): - LAB - BMP 10/22/18 - Follow up with Dr. Coello 10/27 at 1:15pm. Prescriptions (Any new or edited meds): Furosemide [Lasix] 80 mg PO DAILY #90 tab Lisinopril [Zestril] 20 mg PO DAILY #30 tab Potassium Chloride [Klor-Con 10] 40 meq PO DAILY #180 tab Complete Home Medications List: Complete Home Medication List: epinephrine 0.3 mg/0.3 mL injection, auto-injector 0.3 mg IM Q10-15M PRN 02/24/18 oxygen-air delivery systems device See Dose Instructions .ROUTE .MEDSUPPLY #1 02/24/18 pen needle, diabetic 31 gauge x 01/06" See Dose Instructions .ROUTE .MEDSUPPLY #30 ea 02/24/18 albuterol sulfate HFA 90 mcg/actuation aerosol inhaler 1 - 2 puff IH Q4H #18 g 05/11/18 budesonide-formoterol HFA 160 mcg-4.5 mcg/actuation aerosol inhaler 2 puff IH BID #10.2 g 05/11/18 clotrimazole-betamethasone 1 %-0.05 % topical cream 1 applic TP BID #45 g 05/11/18 warfarin 5 mg tablet See Rx Instructions PO DAILY #60 tab 05/11/18 metformin ER 500 mg 24 hr tablet,extended release 1,000 mg PO BID #360 tab 08/31/18 albuterol sulfate 2.5 mg/3 mL (0.083 %) solution for nebulization 2.5 mg IH Q6H #360 ml 10/18/18 blood sugar diagnostic strips 0 strip .ROUTE .MEDSUPPLY 10/18/18 diphenoxylate-atropine 2.5 mg-0.025 mg tablet 0.4 tab PO Q6H PRN #120 tab 10/18/18 duloxetine 30 mg capsule,delayed release 30 mg PO DAILY #90 cap 10/18/18 ferrous sulfate 325 mg (65 mg iron) tablet 325 mg PO DAILY #90 tab 10/18/18 finasteride 5 mg tablet 5 mg PO DAILY #90 tab 10/18/18 insulin aspart U- 100 100 unit/mL subcutaneous pen 15 unit SUBCUT TID #15 ml 10/18/18 insulin detemir (U- 100) 100 unit/mL subcutaneous solution 65 unit SUBCUT BID #40 ml 10/18/18 insulin syringe U-100 with needle 0.5 mL 31 gauge x 5/16" 0 dis.syr .ROUTE .MEDSUPPLY 10/18/18 lovastatin 20 mg tablet 20 mg PO HS #90 tab 10/18/18 metoprolol succinate ER 100 mg tablet,extended release 24 hr 200 mg PO DAILY #180 tab 10/18/18 multivitamin with folic acid 400 mcg tablet 1 tab PO DAILY #90 tab 10/18/18 tamsulosin 0.4 mg capsule 0.4 mg PO DAILY #90 cap 10/18/18 Furosemide [Lasix] 80 mg PO DAILY #90 tab 10/19/18 Lisinopril [Zestril] 20 mg PO DAILY #30 tab 10/19/18 Potassium Chloride [Klor-Con 10] 40 meq PO DAILY #180 tab 10/19/18 Warfarin Sodium [Coumadin] 2.5 mg PO TuTh@1700 tablet 10/19/18 Warfarin Sodium [Coumadin] 5 mg PO SuMoWeFrSa@1700 tablet 10/19/18 Amb Orders for Discharge: Basic Metabolic Panel Time Frame: 10/22/18, Location: Laboratory
[2018-10-19] MEDS: LISINOPRIL 20 MG TABLET PO SCH (08:55)
[2018-10-19] MEDS: FLUTICASONE PROPION/SALMETEROL 14 PUFF DISK.W.DEV IH SCH (08:57)
[2018-10-19] MEDS: INSULIN DETEMIR 100 UNITS/ML VIAL SC SCH (08:58)
[2018-10-19] MEDS ORDERED: DULoxetine HCL 30 MG CAPSULE.SA PO SCH (09:00)
[2018-10-19] MEDS ORDERED: FERROUS SULFATE 325 MG TABLET PO SCH (09:00)
[2018-10-19] MEDS ORDERED: POTASSIUM CHLORIDE 20 MEQ TABLET.SA PO SCH (09:00)
[2018-10-19] MEDS ORDERED: FINASTERIDE 5 MG TABLET PO SCH (09:00)
[2018-10-19] MEDS ORDERED: METOPROLOL SUCCINATE 100 MG TABLET.SA PO SCH (09:00)
[2018-10-19 14:50] VITALS: BP 117/72
[2018-10-19] MEDS ORDERED: WARFARIN SODIUM 2.5 MG TABLET PO SCH (17:00)
--- NOTE | 2018-10-21 11:04 | ECHO ---
This report is available in the EMR
== END 2018-10-19 15:55 | disposition home or self-care (01) ==
LOC: ER 09:33 → MS 09:33
PROVIDERS: ADMIT Internal Medicine; ATTEND Internal Medicine
DX: I48.2 Chronic atrial fibrillation; D64.9 Anemia, unspecified; E78.00 Pure hypercholesterolemia, unspecified; I50.33 Acute on chronic diastolic (congestive) heart failure; I10 Essential (primary) hypertension; E11.9 Type 2 diabetes mellitus without complications
CPT/HCPCS: 36415; 36600; 71010; 71045; 80048; 80053; 82803; 83519; 83735; 83880; 84484; 85025; 85610; 86738; 93005; 94640; 96372; 96374; 96375; 99285; C8929; G0378